=== PATIENT | male | born 1980 | race Caucasian/White ===

== ENCOUNTER 2018-08-11 10:54 | Emergency (ER) | payer OTHER ==
[2018-08-11] MEDS ORDERED: DOCUSATE SODIUM 100 MG CAPSULE RT_EAR ONE (12:14)
--- NOTE | 2018-08-11 12:30 | ER Document Report ---
ED ENT - General Mode of Arrival: Ambulatory Information source: Patient TRAVEL OUTSIDE OF THE [place] IN LAST 30 DAYS: No - HPI Patient complains to provider of: Ear problem Onset: Yesterday Onset/Duration: Gradual Quality of pain: Achy, Dull Severity: Severe Pain Level: 5 Location of pain: Ears Associated symptoms: Ear pain Similar symptoms previously: Yes Recently seen / treated by doctor: No - General Chief Complaint: Ear Pain Stated Complaint: EAR PAIN Time Seen by Provider: 08/11/18 11:45 Notes: 37-year-old male presents to ED for complaint of right ear pain that started yesterday causing pain to his neck. He states he tried using warm water and peroxide with no results. He states the pain is still there came to the emergency room to have someone else clean his ear out. (ROSEMARIE ROLLINS) - Related Data Allergies/Adverse Reactions: No Known Allergies Allergy (Verified 08/11/18 11:13) Past Medical History - General Information source: Patient - Social History Smoking Status: Former Smoker Chew tobacco use (# tins/day): No Frequency of alcohol use: Occasional Drug Abuse: None Occupation: director of channel [employer] Lives with: Family Family History: Arthritis, CAD, DM, Hyperlipidemia, Hypertension Patient has suicidal ideation: No Patient has homicidal ideation: No - Past Medical History Cardiac Medical History: Reports: Hx Hypertension Pulmonary Medical History: Reports: None EENT Medical History: Reports: None Neurological Medical History: Reports: Hx Migraine Endocrine Medical History: Reports: None Renal/ Medical History: Reports: None Malignancy Medical History: Reports None GI Medical History: Reports: None Musculoskeletal Medical History: Reports Hx Arthritis, Reports Hx Musculoskeletal Trauma - Fractured feet Skin Medical History: Reports None Psychiatric Medical History: Reports: None Traumatic Medical History: Reports: Hx Fractures - Feet, Other - Davila's palsy Infectious Medical History: Reports: None Past Surgical History: Reports: Hx Appendectomy - 2010, Hx Orthopedic Surgery - left foot, right arm removal of shrapnel - Immunizations Immunizations up to date: Yes Hx Diphtheria, Pertussis, Tetanus Vaccination: Yes Review of Systems - Review of Systems Constitutional: No symptoms reported EENT: Ear pain - Ear pain to right ear with ear wax that he cannot remove Cardiovascular: No symptoms reported Respiratory: No symptoms reported Gastrointestinal: No symptoms reported Genitourinary: No symptoms reported Male Genitourinary: No symptoms reported Musculoskeletal: No symptoms reported Skin: No symptoms reported Hematologic/Lymphatic: No symptoms reported Neurological/Psychological: No symptoms reported -: Yes All other systems reviewed and negative Physical Exam - Vital signs Interpretation: Normal - General General appearance: Appears well, Alert - HEENT Head: Normocephalic, Atraumatic Eyes: Normal Pupils: PERRL Ears: Normal External canal: Cerumen impaction - Right Tympanic membrane: Normal Sinus: Normal Nasal: Normal Mouth/Lips: Normal Pharynx: Normal Neck: Normal - Respiratory Respiratory status: No respiratory distress Chest status: Nontender Breath sounds: Normal Chest palpation: Normal - Cardiovascular Rhythm: Regular Heart sounds: Normal auscultation Murmur: No - Abdominal Inspection: Normal Distension: No distension Bowel sounds: Normal Tenderness: Nontender Organomegaly: No organomegaly - Back Back: Normal, Nontender - Extremities General upper extremity: Normal inspection, Nontender, Normal color, Normal ROM, Normal temperature General lower extremity: Normal inspection, Nontender, Normal color, Normal ROM, Normal temperature, Normal weight bearing. No: Heather's sign - Neurological Neuro grossly intact: Yes Cognition: Normal Orientation: AAOx4 [place] Coma Scale Eye Opening: Spontaneous [place] Coma Scale Verbal: Oriented [place] Coma Scale Motor: Obeys Commands [place] Coma Scale Total: 15 Speech: Normal Motor strength normal: LUE, RUE, LLE, RLE Sensory: Normal - Psychological Associated symptoms: Normal affect, Normal mood - Skin Skin Temperature: Warm Skin Moisture: Dry Skin Color: Normal - Vital signs Vitals: Temp Pulse Resp BP Pulse Ox 97.7 F 80 16 123/87 H 98 08/11/18 11:29 08/11/18 11:29 08/11/18 11:29 08/11/18 11:29 08/11/18 11:29 Course - Re-evaluation Re-evalutation: 08/11/18 13:46 Patient had relief from pain from his right ear. He states he can now hear totally. Wax was removed and patient was instructed on how to remove wax in the future. Patient was also given the name and number of an ENT. Patient was instructed to return for any complications from this ear irrigation. (ROSEMARIE ROLLINS) 08/11/18 16:58 I was personally available for consultation during this patient's ED course (TROY HEREDIA) - Vital Signs Vital signs: Temp Pulse Resp BP Pulse Ox 98.1 F 85 18 126/74 H 100 08/11/18 14:21 08/11/18 14:21 08/11/18 14:21 08/11/18 14:21 08/11/18 14:21 Procedures - Additional Procedures Cerumen disimpaction Time performed: 13:45 Additional Procedures: Other - Cerumen disimpaction to the right ear Colace which was instilled left in for 20 minutes and then irrigated frequently with one half peroxide one half warm water. Ear was cleared patient now able to hear and no longer has pain. Discharge - Discharge Clinical Impression: Cerumen impaction Qualifiers: Laterality: right Qualified Code(s): H61.21 - Impacted cerumen, right ear Condition: Stable Disposition: HOME, SELF-CARE Instructions: Family Physicians / Practices Additional Instructions: Cerumen Impaction The physician found a severe buildup of earwax in your ear canal, called a cerumen impaction. A large plug of wax can cause earache, decreased hearing, or itching. It can even lead to infection of the outer ear. An impaction of earwax can be removed by the physician using special instruments, or can be irrigated out using a stream of water (often a little of both is required). Some less severe impactions are removed using ear drops that dissolve wax. In the future, don't get soap in your ear canal. Soap doesn't remove wax -- it simply hardens it in place. Don't use cotton swabs. These just push the wax into large clumps, where it doesn't flow out normally. Dust and smoke also contribute to wax buildup. Earwax softening drops are available without prescription, and can be used periodically. Contact the doctor if you develop decreased hearing, earache, drainage from the ear, or severe headache. FOLLOW-UP CARE: If you have been referred to a physician for follow-up care, call the physici ans office for an appointment as you were instructed or within the next two days. If you experience worsening or a significant change in your symptoms, notify the physician immediately or return to the Emergency Department at any time for re-evaluation. Forms: Elevated Blood Pressure Referrals: [facility] THRASHER DO [ASSOCIATE] - Follow up as needed
[2018-08-11 14:23] VITALS: BP 126/74
== END 2018-08-11 14:23 | disposition home or self-care (01) ==
LOC: ER 10:54
DX: H61.21 Impacted cerumen, right ear (principal); H92.01 Otalgia, right ear; M54.2 Cervicalgia; Z87.891 Personal history of nicotine dependence; I10 Essential (primary) hypertension
CPT/HCPCS: 99282